=== PATIENT | male | born 1995 | race Caucasian/White ===

== ENCOUNTER 2017-03-01 20:43 | Emergency (ER) | payer BC ==
[~2017-03-01] VITALS: Ht 175.3 cm; Wt 76.8 kg
[2017-03-01 20:55] VITALS: TEMP 37; Ht 175.3 cm; Wt 76.8 kg
--- NOTE | 2017-03-01 22:17 | EMERGENCY ROOM VISIT NOTE ---
ED Visit Note First contact with patient: 22:05 CHIEF COMPLAINT: Infection of the right lower extremity HISTORY OF PRESENT ILLNESS: This 22-year-old male patient presents to the emergency department ambulatory complaining of redness to the right lower leg. The area has become red, warm, and very painful. The patient denies fever, chills, nausea, or loss of appetite. Movement of the leg is not decreased because of the pain. The patient states that 9 days ago she was stung by an insect. He states that it seemed to get better and then seemed to get worse and has become more red and irritated. REVIEW OF SYSTEMS: An 8 system review of systems was completed with positives and pertinent negatives in the HPI. ALLERGIES: Keflex but can take penicillins MEDICATIONS: None PMH: None SOCIAL HISTORY: The patient is a student. He lives locally PHYSICAL EXAM: Vital Signs: Reviewed Nurse's notes, Temperature 37.0C, vital signs stable. GENERAL: This is a 22-year-old male, in no acute distress, is non toxic in appearance, well-developed, well-nourished. SKIN: There is a small macular area of erythema to the right lower extremity. It measures approximately 4 cm in diameter. There is a small scabbed area in the center read There is no discharge. There is no fluctuance. There is no induration. HEART: Regular rate and rhythm without murmur, gallop, or rub. LUNGS: Clear to auscultation bilaterally without wheezes, rales, or rhonchi. NEURO: Alert and oriented to person, place, and time. Normal sensation to light and sharp touch. Capillary reflex less than 2 seconds. Peripheral pulses 2 + bilaterally. EMERGENCY DEPARTMENT COURSE: I examined the patient. The patient has what appears to be an infected insect bite. This could potentially represent a localized allergic reaction but it has been 9 days and has been worsening. The small scab was unroofed and there was no purulent material below. The patient will be placed on Augmentin. He has tolerated penicillins in the past. He should be rechecked in 24-48 hours. He should return sooner with any worsening symptoms. Current/Historical Medications Scheduled Amoxicillin & Pot Clavulanate (Augmentin 875-125 mg), 1 TAB PO BID Allergies Coded Allergies: Cephalexin (Verified Allergy, Unknown, Unknown, 03/01/17) Vital Signs Date Time Temp Pulse Resp B/P (MAP) Pulse Ox O2 Delivery O2 Flow Rate FiO2 03/01/17 22:35 85 20 135/79 99 03/01/17 20:55 37.0 85 20 135/79 99 Room Air Departure Information Impression Primary Impression: Infected insect bite Dispostion Home / Self-Care Condition GOOD Prescriptions Amoxicillin & Pot Clavulanate (Augmentin 875-125 mg) 1 Tab Tab 1 TAB PO BID for 7 Days, #14 TAB Prov: Jaqueline Garcia PA-C 03/01/17 Referrals No Doctor, Assigned (PCP) Patient Instructions Cellulitis - [facility], [facility] Additional Instructions Augmentin as prescribed, until finished You may try an antihistamine such as Benadryl, Claritin or Zyrtec to help the itching Have the area rechecked in 24-48 hours Return with any worsening redness, swelling, warmth, fevers Problem Qualifiers Primary Impression: Infected insect bite Encounter type: initial encounter Qualified Codes: W57.XXXA - Bitten or stung by nonvenomous insect and other nonvenomous arthropods, initial encounter
[2017-03-01] MEDS ORDERED: AMOX875T PO (22:20)
[2017-03-01] MEDS ORDERED: AMOXICIL/CLAVU 875MG HOME PACK PO ONE (22:30)
[2017-03-01 22:35] VITALS: BP 135/79; PULSE 85; O2SAT 99
== END 2017-03-01 22:37 | disposition home or self-care (01) ==
LOC: C.EDB 20:44 → C.EDD 22:37
DX: T14.8 Other injury of unspecified body region (principal); W57.XXXA Bitten or stung by nonvenomous insect and other nonvenomous arthropods, initial encounter